=== PATIENT | female | born 1970 | race Caucasian/White ===

== ENCOUNTER 2020-04-19 15:41 | Emergency (ER) | payer OTHER ==
[2020-04-19 16:02] VITALS: BMI 26.4
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
[2020-04-19] MEDS ORDERED: diazePAM 5 MG TABLET PO ONE (16:41)
[2020-04-19] MEDS ORDERED: diazePAM 2 MG TABLET PO ONE (16:42)
[2020-04-19] MEDS ORDERED: ACETAMINOPHEN 500 MG TABLET (FP) PO ONE (16:42)
[2020-04-19] MEDS ORDERED: diazePAM 2 MG TABLET ONE (16:45)
[2020-04-19] MEDS ORDERED: ACETAMINOPHEN 500 MG TABLET (FP) ONE (16:45)
[2020-04-19 18:28] VITALS: BP 135/85; PULSE 57; TEMP 98.3
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
== END 2020-04-19 19:52 | disposition home or self-care (01) ==
LOC: FER 15:41
DX: S16.1XXA Strain of muscle, fascia and tendon at neck level, initial encounter (principal)
CPT/HCPCS: 70450-TC; 72125-TC; 99284-25

== ENCOUNTER 2021-12-12 17:28 | Emergency (ER) | payer SELFPAY ==
[2021-12-12 17:44] VITALS: BP 124/55; PULSE 60; TEMP 98; BMI 26.4
[2021-12-12] MEDS ORDERED: IBUPROFEN 600 MG TABLET (FP) PO ONE ×2 (18:09→18:12)
== END 2021-12-12 19:51 | disposition home or self-care (01) ==
LOC: JERFT 17:28
DX: M54.50 Low back pain, unspecified (principal); W01.0XXA Fall on same level from slipping, tripping and stumbling without subsequent striking against object, initial encounter
CPT/HCPCS: 72070-TC-FY; 72100-TC-FY; 99284-25